=== PATIENT | female | born 1995 ===

== ENCOUNTER 2025-05-31 05:57 | Inpatient (IN) | payer OTHER ==
[~2025-05-31] VITALS: Ht 154.9 cm; Wt 59.0 kg
[2025-05-31] MEDS ORDERED: RINGERS SOLUTION,LACTATED 1,000 ML IV SCH (06:00)
[2025-05-31 06:21] VITALS: BP 118/76
[2025-05-31] MEDS ORDERED: PRENATABS RX T1 EACH PO (06:45)
[2025-05-31 07:16] LABS: BASO % 0.5 % (0.1-1.2); EOS # 0.11 (0.04-0.54); EOS % 1.4 % (0.7-7.0); LYMPH # 1.89 (1.18-3.74); LYMPH % 24.2 % (19.3-53.1); MEAN PLATELET VOLUME 13.00 fl (9.4-12.4); MONO # 0.64 (0.24-0.82); MONO % 8.2 % (4.7-12.5); NEUT # 5.08 (1.56-6.13); NEUT % 65.1 % (34.0-71.1); RED CELL DISTRIBUTION WIDTH 13.5 % (11.6-14.4)
[2025-05-31 07:22] LABS: URINE APPEARANCE Clear; URINE BILIRRUBIN Negative (NEGATIVE); URINE BLOOD Negative; URINE COLOR Yellow; URINE GLUCOSE Negative (NEGATIVE); URINE KETONE Negative (NEGATIVE); URINE LEUKOCYTE Negative; URINE NITRATE Negative; URINE PROTEIN Negative (NEGATIVE); URINE UROBILINOGEN 0.2 E.U./dl
[2025-05-31 07:24] LABS: URINE BACTERIA 57.5 uL (0.0-1933); URINE EPITHELIAL CELLS 8.3 uL (0.0-38.8); URINE WBC 2.7 uL (0.0-23.2)
[2025-05-31 07:28] VITALS: BP 118/72
[2025-05-31 07:31] LABS: INR < 0.93
[2025-05-31 07:43] LABS: URINE CAST 0.00 uL (0.0-1.40); URINE RBC 0.2 uL (0.0-20.8)
[2025-05-31] MEDS ORDERED: MISOPROSTOL 25 MCG/4 ML GEL.W.APPL ONE (07:58)
[2025-05-31 08:01] LABS: ALT/SGPT 36.0 U/L (12-78); AST/SGOT 33.0 U/L (15-37); BILIRUBIN TOTAL 0.24 mg/dL (0.3-1.2); BUN CREA RATIO 20.0 (7.0-25.0); CREATININE SERUM 0.6 mg/dL (0.55-1.02); GFR 116.6; GLOBULINA 3.4 G/DL (2.4-3.5); GLUCOSE FASTING 67.0 mg/dL (65-100); OSMOLALITY SERUM 279.0 MOSM/KG (275-295)
[2025-05-31] MEDS ORDERED: MISOPROSTOL 25 MCG/4 ML GEL.W.APPL VAG STA (08:25)
[2025-05-31 11:23] VITALS: BP 118/70
[2025-05-31] MEDS ORDERED: OXYTOCIN 20 UNITS/500ML RL PIGGYBAG IV ONE (12:43)
[2025-05-31] MEDS ORDERED: OXYTOCIN 500 ML IV SCH (13:15)
[2025-05-31 15:39] VITALS: BP 121/67
[2025-05-31 20:45] VITALS: BP 112/67
[2025-05-31 23:34] VITALS: BP 103/61
[2025-06-01] VITALS (8 sets, daily range): BP systolic 91–138; BP diastolic 49–76
[2025-06-01] MEDS ORDERED: MORPHINE SULFATE 4 MG/ML CARTRIDGE IV ONE ×2 (12:00→16:00)
[2025-06-01] MEDS ORDERED: CHLORHEXIDINE GLUCONATE 120 ML BOTTLE TOP ONE (20:27)
[2025-06-01] MEDS ORDERED: OXYTOCIN 20 UNITS/1000ML RL PIGGYBAG IV ONE (20:27)
[2025-06-01] MEDS ORDERED: ERYTHROMYCIN BASE OPHT 1GM EACH TUBE OP ONE (20:27)
[2025-06-01] MEDS ORDERED: LIDOCAINE HCL 1% 10ML VIAL ONE (20:28)
[2025-06-01] MEDS ORDERED: OXYTOCIN 10 UNITS/ML VIAL ONE (20:29)
[2025-06-01] MEDS ORDERED: CARBOPROST TROMETHAMINE 250 MCG/ML AMPUL IM ONE (22:31)
[2025-06-02 00:05] VITALS: BP 116/67
[2025-06-02] MEDS ORDERED: OXYTOCIN 1,000 ML IV SCH (00:15)
[2025-06-02] MEDS ORDERED: OXYTOCIN 10 UNITS/ML VIAL IM STA (00:15)
[2025-06-02] MEDS ORDERED: CHLORHEXIDINE GLUCONATE 120 ML BOTTLE TP SCH (00:15)
[2025-06-02] MEDS ORDERED: CARBOPROST TROMETHAMINE 250 MCG/ML AMPUL IM STA (00:15)
[2025-06-02 04:05] LABS: BASO % 0.2 % (0.1-1.2); EOS # 0.00 (0.04-0.54); EOS % 0.0 % (0.7-7.0); LYMPH # 1.22 (1.18-3.74); LYMPH % 4.9 % (19.3-53.1); MEAN PLATELET VOLUME 13.10 fl (9.4-12.4); MONO # 1.45 (0.24-0.82); MONO % 5.8 % (4.7-12.5); NEUT # 22.07 (1.56-6.13); NEUT % 88.3 % (34.0-71.1); RED CELL DISTRIBUTION WIDTH 13.2 % (11.6-14.4)
[2025-06-02 04:27] VITALS: BP 98/59
[2025-06-02 07:37] VITALS: BP 95/57
[2025-06-02] MEDS ORDERED: DOCUSATE SODIUM 100MG CAP PO SCH (09:00)
[2025-06-02 13:58] VITALS: BP 102/68
[2025-06-02 16:24] VITALS: BP 109/65
[2025-06-03] VITALS: BP 112/68
[2025-06-03 08:00] VITALS: BP 129/76
[2025-06-03 16:54] VITALS: BP 117/79
[2025-06-03] MEDS ORDERED: IBUPROFEN800 MG PO (17:43)
[2025-06-03] MEDS ORDERED: COLACE100 MG PO (17:43)
[2025-06-03] MEDS ORDERED: PRENATAL VITAM1 EAC5 PO (17:43)
== END 2025-06-03 18:33 | disposition home or self-care (01) | DRG 807 ==
LOC: LDR 05:57 → OB/GYN 05:57
PROVIDERS: ADMIT Obstetrics & Gynecology; ATTEND Obstetrics & Gynecology
PROC: 4A1HXCZ Monitoring of Products of Conception, Cardiac Rate, External Approach (ICD-10-PCS; 2025-05-31)
PROC: 10E0XZZ Delivery of Products of Conception, External Approach (ICD-10-PCS; principal; 2025-06-01)
PROC: 0KQM0ZZ Repair Perineum Muscle, Open Approach (ICD-10-PCS; 2025-06-01)
DX: O70.1 Second degree perineal laceration during delivery (principal); Z37.0 Single live birth; Z3A.39 39 weeks gestation of pregnancy